=== PATIENT | male | born 1995 | race Caucasian/White ===

== ENCOUNTER 2018-03-31 14:36 | Emergency (ER) | payer OTHER ==
[~2018-03-31] VITALS: Ht 175.3 cm; Wt 77.1 kg
[2018-03-31] MEDS ORDERED: Norco 5-325 Ta1 EACH PO (16:19)
== END 2018-03-31 16:30 | disposition home or self-care (01) ==
LOC: ER 14:36
DX: S22.21XA Fracture of manubrium, initial encounter for closed fracture (principal); S22.41XA Multiple fractures of ribs, right side, initial encounter for closed fracture; V86.99XA Unspecified occupant of other special all-terrain or other off-road motor vehicle injured in nontraffic accident, initial encounter
CPT/HCPCS: 71250; 72125; 99284